=== PATIENT | female | born 1995 ===

== ENCOUNTER 2017-07-14 12:29 | Emergency (ER) | payer OTHER ==
[2017-07-14 12:51] VITALS: BP 102/55; PULSE 71; RESP 16; TEMP 98.5; O2SAT 99
--- NOTE | 2017-07-14 13:45 | ED PDOC ---
HPI: General Adult Time Seen by Provider: 07/14/17 12:53 Chief Complaint (Nursing): ENT Problem Chief Complaint (Provider): Fevr and Sore Throat History Per: Patient History/Exam Limitations: no limitations Current Symptoms Are (Timing): Still Present Additional Complaint(s): Breanna Ricketts, a 22 year old female presents to the ED complaining of fever( tmax 100.2) and a sore throat.The patient states that she was also experiencing some abdominal pain but that has since resolved. 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 Past Medical History Reviewed: Historical Data, Nursing Documentation, Vital Signs Vital Signs: Last Vital Signs Temp 98.5 F 07/14/17 12:45 Pulse 71 07/14/17 12:45 Resp 16 07/14/17 12:45 BP 102/55 L 07/14/17 12:45 Pulse Ox 99 07/14/17 14:07 - Medical History PMH: No Chronic Diseases - Surgical History Surgical History: No Surg Hx - Family History Family History: States: Unknown Family Hx - Living Arrangements Living Arrangements: With Family - Social History Current smoker - smoking cessation education provided: No - Home Medications Home Medications: Ambulatory Orders Medication Instructions Recorded Famotidine [Pepcid] 20 mg PO BID PRN #10 tab 03/25/15 Famotidine [Pepcid] 20 mg PO BID #20 tab 03/23/17 Fluconazole [Diflucan] 150 mg PO ONCE #1 tab 03/23/17 Nitrofurantoin Macrocrystals 100 mg PO BID #14 cap 03/23/17 [Macrobid] Ondansetron ODT [Zofran ODT] 4 mg PO Q8 PRN #10 odt 03/23/17 Prednisone 50 mg PO ONCE #1 tablet 07/14/17 - Allergies Allergies/Adverse Reactions: Allergies Allergy/AdvReac Type Severity Reaction Status Date / Time No Known Allergies Allergy Verified 03/24/15 21:17 Review of Systems ROS Statement: Except As Marked, All Systems Reviewed And Found Negative Constitutional: Positive for: Fever ENT: Positive for: Throat Pain (tmax 100.2) Gastrointestinal: Positive for: Abdominal Pain ((resolved)) Physical Exam - Reviewed Nursing Documentation Reviewed: Yes Vital Signs Reviewed: Yes - Physical Exam Appears: Positive for: Non-toxic, No Acute Distress Head Exam: Positive for: ATRAUMATIC, NORMAL INSPECTION, NORMOCEPHALIC Skin: Positive for: Normal Color, Warm, Dry Eye Exam: Positive for: Normal appearance, EOMI, PERRL ENT: Positive for: Normal ENT Inspection. Negative for: Sinus Pain/Drainage, Nasal Congestion, Pharyngeal Erythema, Tonsillar Exudate, Tonsillar Swelling Cardiovascular/Chest: Positive for: Regular Rate, Rhythm. Negative for: Tachycardia Respiratory: Positive for: Normal Breath Sounds. Negative for: Rales, Rhonchi, Wheezing, Respiratory Distress Gastrointestinal/Abdominal: Positive for: Normal Exam, Bowel Sounds, Soft. Negative for: Tenderness, Guarding, Rebound Neurologic/Psych: Positive for: Alert, Oriented, Gait - ECG O2 Sat by Pulse Oximetry: 99 (RA) Pulse Ox Interpretation: Normal Medical Decision Making Medical Decision Makin Initial Impression: 22 year old female presenting with fever and sore throat Initial Plan: * Udip * Upreg * Rapid Strep Group * Reevaluation Strep (-) Urine preg (-) Urine normal Scribe Attestation Documented by Mita Clark acting as a scribe for Lakisha Matt PA-C. Scribe Attestation All medical record entries made by the Scribe were at my direction and personally dictated by me. I have reviewed the chart and agree that the record accurately reflects my personal performance of the history, physical exam, medical decision making, and the department course for this patient. I have also personally directed, reviewed, and agree with the discharge instructions and disposition. Disposition - Clinical Impression Clinical Impression: Viral illness - Patient ED Disposition Is Patient to be Admitted: No Counseled Patient/Family Regarding: Diagnosis, Need For Followup, Rx Given - Disposition Disposition: Routine/Home Disposition Time: 14:31 Condition: GOOD Prescriptions: Prednisone 50 mg PO ONCE #1 tablet Instructions: Pharyngitis (ED) Forms: [facility] ED School/Work Excuse
== END 2017-07-14 15:12 | disposition home or self-care (01) ==
LOC: H.ER 12:29
DX: B34.9 Viral infection, unspecified (principal)

== ENCOUNTER 2018-06-07 15:15 | Emergency (ER) | payer OTHER ==
[2018-06-07 15:56] VITALS: BP 101/60; PULSE 80; RESP 16; TEMP 97.6; O2SAT 100
--- NOTE | 2018-06-07 16:27 | ED PDOC ---
HPI: Abdomen Time Seen by Provider: 06/07/18 16:06 Chief Complaint (Nursing): Abdominal Pain Chief Complaint (Provider): Lower Abdominal Pain, dysuria History Per: Patient History/Exam Limitations: no limitations Additional Complaint(s): 22 year old female presents to the emergency department for evaluation of intermittent lower abdominal pain since yesterday associated with urinary discomfort. Yesterday, she notes the pain was unbearable, but today pain is somewhat better. No associated nausea, vomiting, diarrhea or constipation, no back pain, vaginal bleeding or discharge. LNMP: 05/21/18 PMD: cannot recall name Past Medical History Reviewed: Historical Data, Nursing Documentation, Vital Signs Vital Signs: Last Vital Signs Temp 97.6 F 06/07/18 15:52 Pulse 80 06/07/18 15:52 Resp 16 06/07/18 15:52 BP 101/60 06/07/18 15:52 Pulse Ox 100 06/07/18 16:30 - Medical History PMH: No Chronic Diseases - Surgical History Surgical History: No Surg Hx - Family History Family History: States: No Known Family Hx - Living Arrangements Living Arrangements: With Family - Social History Current smoker - smoking cessation education provided: No Alcohol: None Drugs: Denies - Home Medications Home Medications: Ambulatory Orders Medication Instructions Recorded Famotidine [Pepcid] 20 mg PO BID PRN #10 tab 03/25/15 Famotidine [Pepcid] 20 mg PO BID #20 tab 03/23/17 Fluconazole [Diflucan] 150 mg PO ONCE #1 tab 03/23/17 Nitrofurantoin Macrocrystals 100 mg PO BID #14 cap 03/23/17 [Macrobid] Ondansetron ODT [Zofran ODT] 4 mg PO Q8 PRN #10 odt 03/23/17 Prednisone 50 mg PO ONCE #1 tablet 07/14/17 Nitrofurantoin Macrocrystals 100 mg PO BID #14 cap 06/07/18 [Macrobid] Phenazopyridine HCl [Pyridium] 200 mg PO TID PRN #6 tablet 06/07/18 - Allergies Allergies/Adverse Reactions: Allergies Allergy/AdvReac Type Severity Reaction Status Date / Time No Known Allergies Allergy Verified 06/07/18 15:52 Review of Systems ROS Statement: Except As Marked, All Systems Reviewed And Found Negative Constitutional: Negative for: Fever Gastrointestinal: Positive for: Abdominal Pain (lower). Negative for: Nausea, Vomiting, Diarrhea Genitourinary Female: Positive for: Dysuria, Frequency. Negative for: Incontinence, Vaginal Discharge, Vaginal Bleeding Musculoskeletal: Negative for: Back Pain Physical Exam - Reviewed Nursing Documentation Reviewed: Yes Vital Signs Reviewed: Yes - Physical Exam Appears: Positive for: Well, Non-toxic, No Acute Distress Head Exam: Positive for: ATRAUMATIC, NORMOCEPHALIC Skin: Positive for: Normal Color. Negative for: Rash Eye Exam: Positive for: Normal appearance Cardiovascular/Chest: Positive for: Regular Rate, Rhythm Respiratory: Positive for: Normal Breath Sounds Gastrointestinal/Abdominal: Positive for: Normal Exam, Soft. Negative for: Tenderness, Distended, Guarding, Rebound Back: Positive for: Normal Inspection. Negative for: L CVA Tenderness, R CVA Tenderness Extremity: Positive for: Normal ROM Neurologic/Psych: Positive for: Alert, Oriented - Laboratory Results Urine POC: Negative Urine dip results: Positive for: Leukocyte Esterase (moderate), Nitrate ( positive). Negative for: Blood, Ketones, Glucose, Bilirubin, Protein - ECG O2 Sat by Pulse Oximetry: 100 (RA) Pulse Ox Interpretation: Normal Medical Decision Making Medical Decision Making: Time: 16:23 Initial Impression: 22 year old female with lower abdominal pain and dysuria Initial Plan: --Motrin 600 mg PO --Urine dip --Urine Urine dip is positive for nitrites and leukocytes. Patient given prescriptions for Macrobid and Pyridium. Advised fluids, rest and PMD follow-up in 2-3 days. Scribe Attestation: Documented by Yolanda Moreland, acting as a scribe for Keena Evans PA-C. Provider Scribe Attestation: All medical record entries made by the Scribe were at my direction and personally dictated by me. I have reviewed the chart and agree that the record accurately reflects my personal performance of the history, physical exam, medical decision making, and the department course for this patient. I have also personally directed, reviewed, and agree with the discharge instructions and disposition. Disposition - Clinical Impression Clinical Impression: Urinary tract infection - Patient ED Disposition Is Patient to be Admitted: No Counseled Patient/Family Regarding: Studies Performed, Diagnosis, Need For Followup, Rx Given - Disposition Referrals: [facility] [Outside] Disposition: Routine/Home Disposition Time: 16:31 Condition: STABLE Additional Instructions: Take prescription meds as directed. Drink plenty of fluids. Follow-up with primary doctor in 2-3 days. Prescriptions: Nitrofurantoin Macrocrystals [Macrobid] 100 mg PO BID #14 cap Phenazopyridine HCl [Pyridium] 200 mg PO TID PRN #6 tablet PRN Reason: Bladder Spasm Instructions: Urinary Tract Infection, Adult (DC) Forms: [facility] (Khmer)
== END 2018-06-07 17:30 | disposition home or self-care (01) ==
LOC: H.ER 15:15
DX: N39.0 Urinary tract infection, site not specified (principal)